=== PATIENT | female | born 1975 | race Caucasian/White ===

== ENCOUNTER 2017-06-06 09:46 | Outpatient (CLI) | payer OTHER ==
[2017-06-06] MEDS ORDERED: GADOBUTROL 7.5 MMOL/7.5 ML VIAL ONE (10:24)
[2017-06-06] MEDS ORDERED: GADOBUTROL 7.5 MMOL/7.5 ML VIAL IVP ONE (11:13)
--- NOTE | 2017-06-07 14:29 | MRI Report ---
EXAM: MRI BRAIN AND INTERNAL AUDITORY CANAL (IAC),WITHOUT AND WITH CONTRAST. EXAM DATE: 06/06/2017 11:15 AM. CLINICAL HISTORY: 42-year-old with left hemifacial spasms since 04/05/2017 COMPARISON: None. TECHNIQUE: Multiplanar, multisequence T1-weighted and fluid-sensitive MRI sequences of the brain and IACs were performed. Other: None. IV Contrast: 5 cc GADAVIST. FINDINGS: Brain Volume: Normal for age. Parenchyma/Dura: No acute hemorrhage, mass, or acute infarct.No white matter lesions identified. No a bnormal enhancement. Internal Auditory Canals (IACs): Normal. No cranial nerve lesion or inflammatory process identified. The inner ear structure are symmetric and unremarkable. Ventricles/Cisterns: No hydrocephalus. There is prominence of the CSF space seen within the left pont omedullary junction (series 701, image 20) with no discrete cyst or abnormality seen on any sequence. Finding may BE anatomic. Otherwise no abnormal extra-axial fluid collection or hemorrhage. Orbits: Symmetric and unremarkable. Sella Turcica: The pituitary gland, cavernous sinuses, suprasellar cistern and optic chiasm are unrem arkable. Vasculature: Normal signal flow void is seen in the major arterial structures at the skull base. The dural sinuses are patent and enhance normally. Sinuses: No acute sinus disease. Bones: No focal pathologic appearing marrow signal changes. Other: None. IMPRESSION: 1. Cerebellopontine angles and internal auditory canals are clear with no mass or masslike enhancemen t seen. 2. No acute parenchymal hemorrhage, mass, hydrocephalus, midline shift, or abnormal postcontrast enha ncement. 3. No definite white matter lesions seen. [facility] Referring Provider Line: [phone] SITE ID: [id number]
== END 2017-06-06 09:47 | disposition home or self-care (01) ==
LOC: DI 09:46
PROVIDERS: ATTEND Family Medicine
DX: G51.3 Clonic hemifacial spasm (principal)
CPT/HCPCS: 70553; A9585

== ENCOUNTER 2017-09-07 15:53 | Outpatient (CLI) | payer OTHER ==
--- NOTE | 2017-09-08 13:51 | Mammography Report ---
DIGITAL SCREENING MAMMOGRAM: 09/07/2017 CLINICAL INDICATION: A 42-year-old with history of benign biopsy, history of bilateral implants for screening. COMPARISON: 09/2013. TECHNIQUE: Routine CC and MLO projections as well as bilateral implant-displaced views were obtained of the breasts. FINDINGS: The breasts again demonstrate heterogeneously dense fibroglandular parenchyma bilaterally. Bilateral subpectoral saline implants are stable. Punctate, typically benign calcifications are present. No suspicious masses, clustered microcalcifications, or regions of architectural distortion are identified. IMPRESSION: BENIGN FINDINGS. RECOMMENDATION: Routine annual screening unless otherwise clinically indicated. BIRADS CATEGORY 2 - BENIGN FINDINGS. STANDARD QUALIFYING STATEMENTS: 1. This examination was reviewed with the aid of Computer-Aided Detection (CAD). 2. A negative or benign imaging report should not delay biopsy if clinically suspicious findings are present. Consider surgical consultation if warranted. More than 5% of cancers are not identified by imaging. 3. Dense breasts may obscure an underlying neoplasm. TD: 09/08/2017 13:50
== END 2017-09-07 15:54 | disposition home or self-care (01) ==
LOC: DI.N 15:53
PROVIDERS: ATTEND Family Medicine
DX: Z12.31 Encounter for screening mammogram for malignant neoplasm of breast (principal); Z98.82 Breast implant status
CPT/HCPCS: 77067

== ENCOUNTER 2017-09-16 14:44 | Outpatient (CLI) | payer OTHER ==
[2017-09-16 18:59] LABS: BASOPHILS % (AUTO) 0.3 %; EOSINOPHILS # (AUTO) 0.1 10^3/uL (0.0-0.7); EOSINOPHILS % (AUTO) 0.9 %; HGB - HEMOGLOBIN 12.6 g/dL (12.0-16.0); LYMPHOCYTES # (AUTO) 2.2 10^3/uL (1.5-3.5); LYMPHOCYTES % (AUTO) 31.5 %; MEAN CORPUSCULAR HGB CONC 33.2 g/dL (32.0-36.0); MEAN CORPUSCULAR VOLUME 93.3 fL (81.0-99.0); MEAN PLATELET VOLUME 9.7 fL (7.9-10.8); MONOCYTES # (AUTO) 0.3 10^3/uL (0.0-1.0); MONOCYTES % (AUTO) 4.8 %; NEUTROPHILS # (AUTO) 4.3 10^3/uL (1.5-6.6); NEUTROPHILS % (AUTO) 62.5 %; PLT - PLATELET COUNT 247 10^3/uL (130-450); RED BLOOD COUNT 4.05 10^6/uL (4.20-5.40); RED CELL DISTRIBUTION WIDTH 12.7 % (12.0-15.0); WHITE BLOOD COUNT 6.8 x10^3/uL (4.8-10.8)
[2017-09-16 19:13] LABS: INR 1.1 (0.8-1.2); PT - PROTHROMBIN TIME 12.1 secs (9.9-12.6)
== END 2017-09-16 14:45 ==
LOC: LAB.WCP 14:44
PROVIDERS: ATTEND Family Medicine
DX: Z01.818 Encounter for other preprocedural examination (principal); Z98.82 Breast implant status
CPT/HCPCS: 36415; 85025; 85610; 85730

== ENCOUNTER → 2018-03-16 | Outpatient (CLI) | payer OTHER ==
[2018-03-16 18:51] LABS: BASOPHILS % (AUTO) 0.4 %; EOSINOPHILS # (AUTO) 0.1 10^3/uL (0.0-0.7); HGB - HEMOGLOBIN 12.6 g/dL (12.0-16.0); LYMPHOCYTES # (AUTO) 2.1 10^3/uL (1.5-3.5); LYMPHOCYTES % (AUTO) 31.2 %; MEAN CORPUSCULAR HEMOGLOBIN 32.2 pg (27.0-31.0); MEAN CORPUSCULAR HGB CONC 34.6 g/dL (32.0-36.0); MEAN CORPUSCULAR VOLUME 93.1 fL (81.0-99.0); MEAN PLATELET VOLUME 9.8 fL (7.9-10.8); MONOCYTES # (AUTO) 0.3 10^3/uL (0.0-1.0); MONOCYTES % (AUTO) 4.4 %; NEUTROPHILS # (AUTO) 4.3 10^3/uL (1.5-6.6); PLT - PLATELET COUNT 256 10^3/uL (130-450); RED BLOOD COUNT 3.92 10^6/uL (4.20-5.40); WHITE BLOOD COUNT 6.8 x10^3/uL (4.8-10.8)
[2018-03-16 19:24] LABS: INR 1.1 (0.8-1.2); PT - PROTHROMBIN TIME 12.4 secs (9.9-12.6)
[2018-03-16 19:32] LABS: ALBUMIN/GLOBULIN RATIO 2.3 (1.0-2.2); BILIRUBIN,TOTAL 0.9 mg/dL (0.2-1.0); CALCIUM 8.9 mg/dL (8.5-10.3); CREATININE 0.5 mg/dL (0.4-1.0); TOTAL PROTEIN 7.2 g/dL (6.7-8.2)
== END ==
LOC: LAB.WCP 14:00
PROVIDERS: ATTEND Family Medicine
DX: G51.39 Clonic hemifacial spasm, unspecified (principal)
CPT/HCPCS: 36415; 80053; 85025; 85610; 85730; 87640

== ENCOUNTER 2018-08-10 12:40 | Outpatient (CLI) | payer OTHER ==
--- NOTE | 2018-08-10 15:58 | Mammography Report ---
Reason: UNSPECIFIED LUMP IN THE LEFT BREAST, LOWER OUTER Q Procedure Date: 08/10/2018 Accession Number: [id number] / [id number] Procedure: [facility]US[facility]IN - Diagnostic Dig Bilat CPT Code: FULL RESULT: EXAM: Diagnostic Dig Bilat, Breast Unilateral Limited DATE: 08/10/2018 1:37 PM CLINICAL HISTORY: Palpable left lump per patient. No reported personal or family history of breast cancer. Prior benign excisional biopsy on the right. Prior implants and implant removal bilaterally. TECHNIQUE: (B) - Bilateral Bilateral CC and MLO views were obtained. Additional spot magnified left CC and left MLO. Left 90 degree 2-D 3-D. Real-time ultrasound left breast by both the technologist and the radiologist. COMPARISON: 09/07/2017 through 10/04/2013 FINDINGS: Left breast: There are operative changes status post interval implant removal. There are no suspicious masses, calcifications or areas of nonoperative distortion. There is no mammographic finding of concern in the region of palpable lump per patient marked with a marker anterior lateral left breast. Targeted ultrasound is performed of the 3:00 breast at the site of marker 2 cm from the nipple as well as the inferior breast from 6:00 to 3:00 middle depth to correspond to area of palpable concern to patient. Only normal tissues are noted. Right breast: There are operative changes status post interval implant removal. There are no suspicious masses, calcifications or areas of nonoperative distortion. PARENCHYMAL PATTERN: (D) - The breasts demonstrate heterogeneously dense fibroglandular parenchyma bilaterally. IMPRESSION: Bilateral breasts: Benign bilateral imaging findings. No imaging finding of concern in the left breast correspond to the palpable lump per patient. Benign. BI-RADS Category 2. Clinical follow-up for palpable finding is recommended in the left breast. Patient was instructed to return prior to recommended imaging interval for any increase in current symptoms or new symptoms/concerns. Otherwise recommend annual screening mammography. RECOMMENDATION: (ANNUAL) - Recommend routine annual screening mammography. BI-RADS CATEGORY: (2) - Benign Findings STANDARD QUALIFYING STATEMENTS: 1. This examination was not reviewed with the aid of Computer-Aided Detection (CAD). 2. A negative or benign imaging report should not preclude biopsy if clinically suspicious findings are present. 3. Dense breasts may obscure an underlying neoplasm. 4. This examination was reviewed with the aid of 3D breast imaging (tomosynthesis).
== END 2018-08-10 12:41 | disposition home or self-care (01) ==
LOC: DI 12:40
PROVIDERS: ATTEND Family Medicine
DX: N63.23 Unspecified lump in the left breast, lower outer quadrant (principal)
CPT/HCPCS: 76642; 77066

== ENCOUNTER 2019-10-07 08:00 | Outpatient (CLI) | payer OTHER | END 2019-10-07 23:59 | disposition home or self-care (01) | LOC: LAB.WCP 08:00 | PROVIDERS: ATTEND Registered Nurse | DX: Z00.00 Encounter for general adult medical examination without abnormal findings (principal) | CPT/HCPCS: 36415; 86317; 86735; 86762; 86765; 86787 ==

== ENCOUNTER 2020-03-02 07:30 | Outpatient (CLI) | payer OTHER | END 2020-03-02 23:59 | disposition home or self-care (01) | LOC: LAB.R 07:30 | PROVIDERS: ATTEND Family Medicine | DX: G51.39 Clonic hemifacial spasm, unspecified (principal); Z20.828 Contact with and (suspected) exposure to other viral communicable diseases | CPT/HCPCS: 87640 ==